=== PATIENT | male | born 1990 | race Caucasian/White ===

== ENCOUNTER 2017-03-09 18:06 | Emergency (ER) | payer OTHER ==
[~2017-03-09] VITALS: Ht 170.1 cm; Wt 63.5 kg
[2017-03-09 18:34] LABS: BASO # 0.1 10*3/uL (0.0-0.1); BASO % 1.3 % (0.0-1.0); EOS # 0.7 10*3/uL (0.0-0.4); EOS % 8.4 % (1.0-4.0); HEMATOCRIT 45.7 % (42.0-52.0); LYMPH # 1.9 10*3/uL (1.3-4.4); LYMPH % 22.5 % (27.0-41.0); MEAN CELL VOLUME 88.1 fl (80.0-94.0); MEAN CORPUSCULAR HGB 30.8 pg (27.0-31.0); MEAN PLATELET VOLUME 10.6 fl (9.6-12.3); MONO # 0.8 10*3/uL (0.1-1.0); MONO % 9.5 % (3.0-9.0); PLATELET COUNT AUTOMATED 226 10*3/uL (130-400); RED BLOOD COUNT 5.19 10*6/uL (4.50-5.90); RED CELL DISTRI WIDTH 12.7 % (0-14.5); WHITE BLOOD COUNT 8.6 10*3/uL (4.8-10.8)
[2017-03-09 18:52] LABS: ALBUMIN 4.4 gm/dl (3.1-4.5); ALKALINE PHOSPHATASE 76 U/L (45-117); BILIRUBIN, TOTAL 0.4 mg/dl (0.2-1.0); BUN 7 mg/dl (7-24); CARBON DIOXIDE 27 mmol/L (21-32); CHLORIDE 105 mmol/L (98-107); EST GLOM FILT AFRICAN AMERICAN > 60 ml/min; GLUCOSE 100 mg/dL (65-99); POTASSIUM 3.2 mmol/L (3.5-5.1); SGOT/AST 20 IU/L (3-35); SGPT/ALT 32 U/L (12-78); SODIUM 140 mmol/L (136-145); TOTAL PROTEIN 8.3 gm/dL (6.4-8.2); TROPONIN I < 0.015 ng/ml (<0.045)
[2017-03-09 19:03] LABS: BILIRUBIN NEGATIVE (NEGATIVE); BLOOD NEGATIVE (NEGATIVE); CLARITY CLEAR (CLEAR); COLOR YELLOW (YELLOW); GLUCOSE NEGATIVE (NEGATIVE); KETONE NEGATIVE (NEGATIVE); LEUKO ESTERASE NEGATIVE (NEGATIVE); NITRITE NEGATIVE (NEGATIVE); PROTEIN NEGATIVE (NEGATIVE); SPECIFIC GRAVITY <= 1.005 (1.005-1.030); UROBILINOGEN 0.2 E.U./dl (0.2-1.0)
[2017-03-09 19:10] LABS: BACTERIA TRACE; EPITHELIAL CELLS 0-2; URINE REFLEX COMMENT NO (NO)
[2017-03-09 19:11] LABS: URINE AMPHETAMINES < 1000 (1000ng/ml); URINE BARBITURATES < 200 (200ng/ml); URINE COCAINE < 300 (300ng/ml)
== END 2017-03-09 19:46 | disposition home or self-care (01) ==
LOC: ED 18:06
PROVIDERS: Physician Assistant
DX: I49.3 Ventricular premature depolarization (principal); F41.9 Anxiety disorder, unspecified; R30.0 Dysuria

== ENCOUNTER → 2017-04-02 | Outpatient (CLI) | payer OTHER | END | disposition home or self-care (01) | LOC: CARD 13:52 | DX: R42 Dizziness and giddiness (principal) ==

== ENCOUNTER 2017-07-07 10:18 | Emergency (ER) | payer OTHER ==
[~2017-07-07] VITALS: Ht 172.7 cm; Wt 63.5 kg
[2017-07-07 10:57] LABS: BASO # 0.1 10*3/uL (0.0-0.1); BASO % 1.4 % (0.0-1.0); EOS # 0.6 10*3/uL (0.0-0.4); EOS % 11.9 % (1.0-4.0); HEMATOCRIT 43.9 % (42.0-52.0); HEMOGLOBIN 15.3 g/dl (14.0-18.0); LYMPH # 1.2 10*3/uL (1.3-4.4); LYMPH % 24.7 % (27.0-41.0); MEAN CELL VOLUME 87.1 fl (80.0-94.0); MEAN CORPUSCULAR HGB 30.4 pg (27.0-31.0); MEAN CORPUSCULAR HGB CONC 34.9 g/dl (33.0-37.0); MEAN PLATELET VOLUME 10.8 fl (9.6-12.3); MONO # 0.5 10*3/uL (0.1-1.0); NEUT # 2.5 10*3/uL (2.3-7.9); NEUT % 50.8 % (47.0-73.0); PLATELET COUNT AUTOMATED 180 10*3/uL (130-400); RED BLOOD COUNT 5.04 10*6/uL (4.50-5.90); RED CELL DISTRI WIDTH 12.1 % (0-14.5); WHITE BLOOD COUNT 4.9 10*3/uL (4.8-10.8)
[2017-07-07 11:10] LABS: ACT PARTIAL THROMBO TIME 25.3 SECONDS (20.8-31.5)
[2017-07-07 11:14] LABS: ALBUMIN 4.4 gm/dl (3.1-4.5); ALKALINE PHOSPHATASE 69 U/L (45-117); BUN 9 mg/dl (7-24); CHLORIDE 106 mmol/L (98-107); CREATININE 0.87 mg/dL (0.70-1.30); LIPASE 124 U/L (73-393); POTASSIUM 3.8 mmol/L (3.5-5.1); SGOT/AST 19 IU/L (3-35); SGPT/ALT 40 U/L (12-78); SODIUM 141 mmol/L (136-145); TOTAL PROTEIN 7.6 gm/dL (6.4-8.2)
[2017-07-07 11:15] LABS: TROPONIN I < 0.015 ng/ml (<0.045)
[2017-07-07] MEDS ORDERED: PEPCID20 MG PO (12:16)
== END 2017-07-07 13:54 | disposition home or self-care (01) ==
LOC: ED 10:18
PROVIDERS: Emergency Medicine
DX: K29.00 Acute gastritis without bleeding (principal); F41.9 Anxiety disorder, unspecified; F10.10 Alcohol abuse, uncomplicated

== ENCOUNTER 2017-07-22 01:31 | Emergency (ER) | payer OTHER ==
[~2017-07-22] VITALS: Ht 170.1 cm; Wt 61.2 kg
--- NOTE | ~2017-07-22 | EKG ---
[place], [place] ELECTROCARDIOGRAM REPORT NAME: NEELA CARRILLO UNIT #: [id number] ROOM: DOCTOR: ASHER RAHMAN,BESSIE BIRTHDATE: [birth year] DOS: 07/22/2017 TIME: 2:21 a.m. IMPRESSION: 1. Ectopic atrial rhythm. 2. Supraventricular ectopy. 3. Nonspecific ST-T changes. BESSIE STERLING MD CM:EKGRPT:ELECTROCARDIOGRAM REPORT [id number] BESSIE STERLING MD
[~2017-07-22 01:31] MED LIST: PEPCID20 MG PO
[2017-07-22 02:23] LABS: BASO # 0.1 10*3/uL (0.0-0.1); BASO % 1.3 % (0.0-1.0); EOS # 0.8 10*3/uL (0.0-0.4); HEMATOCRIT 43.7 % (42.0-52.0); HEMOGLOBIN 15.4 g/dl (14.0-18.0); LYMPH # 1.7 10*3/uL (1.3-4.4); LYMPH % 26.6 % (27.0-41.0); MEAN CELL VOLUME 85.7 fl (80.0-94.0); MEAN CORPUSCULAR HGB 30.2 pg (27.0-31.0); MEAN CORPUSCULAR HGB CONC 35.2 g/dl (33.0-37.0); MEAN PLATELET VOLUME 10.8 fl (9.6-12.3); MONO # 0.6 10*3/uL (0.1-1.0); NEUT # 3.1 10*3/uL (2.3-7.9); NEUT % 48.9 % (47.0-73.0); PLATELET COUNT AUTOMATED 186 10*3/uL (130-400); RED CELL DISTRI WIDTH 12.1 % (0-14.5); WHITE BLOOD COUNT 6.3 10*3/uL (4.8-10.8)
[2017-07-22 02:40] LABS: ALBUMIN 4.3 gm/dl (3.1-4.5); ALKALINE PHOSPHATASE 84 U/L (45-117); BUN 11 mg/dl (7-24); CHLORIDE 106 mmol/L (98-107); CREATININE 0.77 mg/dL (0.70-1.30); LIPASE 103 U/L (73-393); POTASSIUM 3.6 mmol/L (3.5-5.1); SGOT/AST 21 IU/L (3-35); SGPT/ALT 43 U/L (12-78); SODIUM 141 mmol/L (136-145); TOTAL PROTEIN 7.5 gm/dL (6.4-8.2)
[2017-07-22 02:44] LABS: BILIRUBIN NEGATIVE (NEGATIVE); BLOOD NEGATIVE (NEGATIVE); CLARITY CLEAR (CLEAR); COLOR YELLOW (YELLOW); GLUCOSE NEGATIVE (NEGATIVE); KETONE NEGATIVE (NEGATIVE); LEUKO ESTERASE NEGATIVE (NEGATIVE); NITRITE NEGATIVE (NEGATIVE); SPECIFIC GRAVITY <= 1.005 (1.005-1.030); UROBILINOGEN 0.2 E.U./dl (0.2-1.0)
[2017-07-22 02:51] LABS: BACTERIA TRACE; EPITHELIAL CELLS 0-2; RBC 0-2 rbc/hpf (0-2); WBC 0-2 wbc/hpf (0-5)
[2017-07-22] MEDS ORDERED: ATIVAN1 MG PO (04:17)
[2017-07-22] MEDS ORDERED: PROTONIX40 MG PO (04:22)
== END 2017-07-22 04:33 | disposition home or self-care (01) ==
LOC: ED 01:31
PROVIDERS: Emergency Medicine Emergency Medical Services
DX: F41.9 Anxiety disorder, unspecified (principal); R10.9 Unspecified abdominal pain; R11.0 Nausea

== ENCOUNTER → 2017-08-28 | Day surgery (SDC) | payer OTHER ==
[~2017-08-28] VITALS: Ht 172.7 cm; Wt 61.2 kg
[~2017-08-28] MED LIST changes: +ATIVAN1 MG PO; +BUSPIRONE10 MG PO; +PRILOSEC20 M1 PO; +PROTONIX20 MG PO; +PROTONIX40 MG PO
--- NOTE | ~2017-08-28 | O ---
[place], [place] OPERATIVE NOTE NAME: NEELA CARRILLO UNIT #: [id number] ROOM: DOCTOR: JOSH HERR MD BIRTHDATE: [birth year] DOS: 08/28/2017 GASTROENDOSCOPIC REPORT HISTORY: A 26-year-old patient who presented with a chief complaint of epigastric distress, abdominal pain, has gone to Emergency Room, multiple visits. ALLERGIES: No known medication. FAMILY HISTORY: Noncontributory. PAST SURGICAL HISTORY: Unremarkable. PAST MEDICAL HISTORY: Anxiety. SOCIAL HISTORY: Nonsmoker; however, chewing tobacco, social alcohol; however, soda pop consumer of about 2 bottles per day. PROCEDURE: Today's procedure part of investigation is panendoscopy plus biopsy. PREMEDICATION: Versed and Diprivan. SCOPE: Olympus forward-viewing gastroscope Q10 video. REPORT: After putting the patient in left lateral position and application of lubricant to the scope, the scope was introduced. Thereafter, under direct visualization, I advanced through the length of esophagus without difficulty. Esophagus, cervical, thoracic were distally carefully examined. A small hiatal hernia of 2 cm was noticed. Gastric pouch was entered. Gastritis seen. Duodenal bulb, second and third part within normal limits. The patient extubated after antral biopsy and GI reflexion of the scope, which confirmed the findings. IMPRESSION: A small hiatal hernia, gastritis, status post biopsy. PLAN AND DISCUSSION: We are going to keep this patient on Prilosec 40 mg daily, antireflux measures. The patient was advised to abstain from chewing tobacco and avoiding carbonated soda, elevation of the head of the bed 6-inch all the time and follow up as an outpatient. [place], [place] OPERATIVE NOTE NAME: NEELA CARRILLO UNIT #: [id number] ROOM: DOCTOR: JOSH HERR MD BIRTHDATE: [birth year] JOSH HERR MD CM:OPRECORD:OPERATIVE NOTE [id number] JOSH HERR MD 08/28/17 1300 interface
[2017-08-28 09:30] VITALS: BP 125/91
[2017-08-28 10:44] VITALS: BP 103/45
[2017-08-28 10:58] VITALS: BP 105/60
[2017-08-28 11:12] VITALS: BP 109/63
== END | disposition home or self-care (01) ==
LOC: SDC 02:24
DX: K29.50 Unspecified chronic gastritis without bleeding (principal); K44.9 Diaphragmatic hernia without obstruction or gangrene; F41.9 Anxiety disorder, unspecified; K21.9 Gastro-esophageal reflux disease without esophagitis

== ENCOUNTER 2020-11-11 12:38 | Emergency (ER) | payer OTHER, BC ==
[~2020-11-11] VITALS: Ht 172.7 cm; Wt 72.6 kg
[2020-11-11] MEDS ORDERED: MEDROL DOSEPAK4 MG PO (14:32)
== END 2020-11-11 14:20 | disposition home or self-care (01) ==
LOC: ED 12:38
DX: S00.03XA Contusion of scalp, initial encounter (principal); S00.83XA Contusion of other part of head, initial encounter; F41.9 Anxiety disorder, unspecified; K21.9 Gastro-esophageal reflux disease without esophagitis; Z79.899 Other long term (current) drug therapy; X58.XXXA Exposure to other specified factors, initial encounter; Y93.89 Activity, other specified; Y92.89 Other specified places as the place of occurrence of the external cause; Y99.8 Other external cause status

== ENCOUNTER → 2022-01-30 | Outpatient (CLI) | payer BC ==
[~2022-01-30] MED LIST changes: +MEDROL DOSEPAK4 MG PO
== END | disposition home or self-care (01) ==
LOC: CT 09:00
PROVIDERS: ATTEND Surgery
DX: K76.0 Fatty (change of) liver, not elsewhere classified (principal)

== ENCOUNTER → 2022-03-12 | Outpatient (CLI) | payer BC | END | disposition home or self-care (01) | LOC: NM 02:40 | PROVIDERS: ATTEND Surgery | DX: R13.10 Dysphagia, unspecified (principal); R11.0 Nausea; K21.9 Gastro-esophageal reflux disease without esophagitis ==

== ENCOUNTER → 2022-04-19 | Day surgery (SDC) | payer BC ==
[~2022-04-19] VITALS: Ht 172.7 cm; Wt 72.6 kg
[~2022-04-19] MED LIST changes: +CARAFATE1 G1 PO
[2022-04-19 08:17] VITALS: BP 131/86
[2022-04-19 09:06] VITALS: BP 107/65
[2022-04-19 09:26] VITALS: BP 111/60
== END | disposition home or self-care (01) ==
LOC: SDC 02-26 11:00
PROVIDERS: ATTEND Surgery
DX: R19.4 Change in bowel habit (principal); K29.50 Unspecified chronic gastritis without bleeding; K21.00 Gastro-esophageal reflux disease with esophagitis, without bleeding; F41.9 Anxiety disorder, unspecified; Z87.891 Personal history of nicotine dependence; Z79.899 Other long term (current) drug therapy